=== PATIENT | male | born 2000 | race African-American/Black ===

== ENCOUNTER 2020-08-23 16:59 | Emergency (ER) | payer SELFPAY ==
[~2020-08-23] VITALS: Ht 167.6 cm; Wt 74.8 kg
[2020-08-23 17:02] VITALS: BP_SYST 125
[2020-08-23 17:42] LABS: BASOPHILS # (AUTO) 0.1 K/uL (0.0-0.2); EOSINOPHILS # (AUTO) 0.1 K/uL (0.0-0.4); EOSINOPHILS % (AUTO) 1.8 % (0.0-4.0); HEMATOCRIT 47.7 % (36-54); HEMOGLOBIN 16.1 g/dL (14.0-18.0); LYMPHOCYTES # (AUTO) 2.8 K/uL (1.0-5.5); LYMPHOCYTES % (AUTO) 41.9 % (20.5-51.5); MEAN CORPUSCULAR HEMOGLOBIN 29 pg (27-31); MEAN CORPUSCULAR HGB CONC 34 % (32-36); MEAN CORPUSCULAR VOLUME 86 fL (79.0-98.0); MONOCYTES # (AUTO) 0.6 K/uL (0.0-1.0); MONOCYTES % (AUTO) 9.5 % (1.7-9.3); NEUTROPHILS % (AUTO) 45.8 % (40.0-70.0); PLATELET COUNT (AUTO) 240 K/uL (130-430); RED BLOOD CELL COUNT(AUTO) 5.57 MIL/uL (4.2-6.2); RED CELL DISTRIBUTION WIDTH 12.9 % (9.0-15.0); WHITE BLOOD COUNT (AUTO) 6.6 K/uL (4.8-10.8)
[2020-08-23 17:54] LABS: CALCIUM 9.1 mg/dL (8.4-11.0); CREATININE 1.04 mg/dL (0.55-1.30); POTASSIUM 3.7 mmol/L (3.5-5.1)
[2020-08-23 18:04] LABS: TOTAL BILIRUBIN 0.4 mg/dL (0.0-1.0)
[2020-08-23] MEDS ORDERED: ASPI-862 PO (18:13)
[2020-08-23] MEDS ORDERED: ASPIRIN 325 MG TABLET (ECOTRIN) PO ONE ×2 (18:15→18:23)
[2020-08-23] MEDS ORDERED: OMEP20TA20 PO (18:34)
[2020-08-23] MEDS ORDERED: PANTOPRAZOLE SODIUM 40 MG TAB ONE (18:39)
[2020-08-23 18:41] VITALS: BP_SYST 120
[2020-08-23] MEDS ORDERED: OMEPRAZOLE Non-Formulary 20 MG CAPSULE.DR PO ONE (18:45)
[2020-08-23] MEDS ORDERED: PANTOPRAZOLE SODIUM 40 MG TAB PO ONE (18:45)
== END 2020-08-23 18:45 | disposition home or self-care (01) ==
LOC: SED 16:59
DX: I30.9 Acute pericarditis, unspecified (principal); F17.200 Nicotine dependence, unspecified, uncomplicated; Z71.6 Tobacco abuse counseling
CPT/HCPCS: 36415; 71045; 76705; 80053; 82150; 83690; 84484; 85025; 93005; 99285

== ENCOUNTER 2020-08-25 17:06 | Emergency (ER) | payer SELFPAY ==
[~2020-08-25] VITALS: Ht 175.3 cm; Wt 87.5 kg
[~2020-08-25 17:06] MED LIST: ASPI-862 PO; OMEP20TA20 PO
--- NOTE | 2020-08-25 17:10 | NUR ---
BROUGHT BACK TO BED #3 AND TRIAGED. REPORT GIVEN TO [place]
--- NOTE | 2020-08-25 17:15 | NUR ---
pt arrived for f/u visit. was instructed to see PCP in 2 to 3 days and came here for f/u. VSS, no c/o any pain or chest discomfort.
--- NOTE | 2020-08-25 17:20 | NUR ---
DALIA Regalado at bedside examining patient.
[2020-08-25 17:33] VITALS: BP_SYST 162
--- NOTE | 2020-08-25 17:54 | NUR ---
Patient given written and verbal discharge instructions and verbalizes understanding. ER MD discussed with patient the results and treatment provided. Patient in stable condition. ID arm band removed. Rx of NONE given. Patient educated on pain management and to follow up with PMD. Pain Scale 0/10. Opportunity for questions provided and answered. Medication side effect fact sheet provided.
[2020-08-25 18:00] VITALS: BP_SYST 162
== END 2020-08-25 17:54 | disposition home or self-care (01) ==
LOC: SED 17:06
DX: R07.89 Other chest pain (principal); I31.9 Disease of pericardium, unspecified
CPT/HCPCS: 99281